=== PATIENT | male | born 1960 | race African-American/Black ===

== ENCOUNTER 2016-08-04 03:41 | Emergency (ER) | payer BC ==
[~2016-08-04] VITALS: Ht 198.1 cm; Wt 90.7 kg
--- NOTE | 2016-08-04 03:49 | NUR ---
PT BIB RA WITH A C/O SOB. PT ARRIVED ON BREATHING TX. PT AMBULATED TO BED #1. PT IS ON THE MONITOR AND CONTINUOUS PULSE OX.
[2016-08-04] MEDS ORDERED: DEXAMETHASONE SOD PHOSPHATE 10 MG/ML VIAL IV ONE (04:00)
[2016-08-04] MEDS ORDERED: ALBUTEROL FS 2.5 MG/3 ML VIAL.NEB CONTNEB ONE (04:00)
[2016-08-04] MEDS ORDERED: ALBUTEROL FS 2.5 MG/3 ML VIAL.NEB ONE (04:02)
--- NOTE | 2016-08-04 04:23 | NUR ---
PT REC'ING BREATHING TX.
[2016-08-04] MEDS ORDERED: ALBUTEROL 17GM INHALER ONE (04:26)
[2016-08-04] MEDS ORDERED: ALBUTEROL SULFATE 8 GM HFA.AER.AD IH ONE (04:30)
[2016-08-04 04:42] VITALS: BP 125/74
--- NOTE | 2016-08-04 04:45 | NUR ---
Patient discharged to home in stable condition. Written and verbal after care instructions given. Patient verbalizes understanding of instruction. PT AMBULATED OUT WITH A STEADY GAIT. VSS.
== END 2016-08-04 04:44 | disposition home or self-care (01) ==
LOC: ER 03:43
DX: J45.901 Unspecified asthma with (acute) exacerbation (principal)
CPT/HCPCS: A4606; Z7610